=== PATIENT | male | born 1940 | race Caucasian/White ===

== ENCOUNTER 2020-02-12 11:28 | Inpatient (IN) | payer MEDICARE ==
[~2020-02-12] VITALS: Ht 162.6 cm; Wt 68.0 kg
[2020-02-12] MEDS ORDERED: iohexol 350 MG/ML 50ML vial IV ONE (11:58)
[2020-02-12] MEDS ORDERED: iohexol 350MG/ML 100ml bottle IV ONE (11:58)
[2020-02-12 12:14] LABS: BASOPHILS % (AUTO) 0.3 % (0-1); EOSINOPHILS % (AUTO) 0 % (0-6); HEMATOCRIT 47.4 % (42.0-52.0); HEMOGLOBIN 16.4 g/dl (14.0-17.9); LYMPHOCYTES # (AUTO) 1.5 X10'3 (1.1-4.8); LYMPHOCYTES % (AUTO) 14.3 % (21-51); MEAN CORPUSCULAR HEMOGLOBIN 33.9 PG (27.0-31.0); MEAN CORPUSCULAR HGB CONC 34.6 g/dL (33.0-36.5); MEAN CORPUSCULAR VOLUME 98.1 FL (78-98); MEAN PLATELET VOLUME 8.9 FL (7.4-10.4); MONOCYTES # (AUTO) 0.8 X10'3 (0-0.9); MONOCYTES % (AUTO) 7.1 % (2-12); NEUTROPHILS # (AUTO) 8.4 X10'3 (1.8-7.7); NEUTROPHILS % (AUTO) 78.3 % (42-75); PLATELET COUNT 254 X10'3 (140-440); RED BLOOD COUNT 4.83 X10'6 (4.70-6.10); RED CELL DISTRIBUTION WIDTH 13.8 % (11.5-14.5); WHITE BLOOD COUNT 10.7 X10'3 (4.5-11.0)
[2020-02-12 12:23] LABS: ALBUMIN 3.9 G/DL (3.4-5.0); ANION GAP 10 (8-16); BLOOD UREA NITROGEN 6 MG/DL (7-18); BUN/CREATININE RATIO 6.4 (5.4-32.0); CALCIUM 8.9 MG/DL (8.5-10.1); CHLORIDE 103 MMOL/L (99-107); CREATININE 0.94 MG/DL (0.60-1.10); GLUCOSE 128 MG/DL (70-104); SODIUM 136 MMOL/L (135-145); TOTAL CARBON DIOXIDE 22.8 MMOL/L (24-32); eGFR 77 ML/MIN
--- NOTE | 2020-02-12 13:16 | NUR ---
Pt has no change in condition. Pt denies pain unless he is weight bearing on bilateral lower extremities.
[2020-02-12] MEDS ORDERED: NO HOME MEDS (15:39)
[2020-02-12] MEDS ORDERED: magnesium 4gm in 100ml NS 100 ML IV PRN (16:55)
[2020-02-12] MEDS ORDERED: magnesium Cl slow-release 64mg tablet PO PRN (16:55)
[2020-02-12] MEDS ORDERED: potassium Cl 20 mEq SR tablet PO PRN ×2 (16:55)
[2020-02-12] MEDS ORDERED: magnesium 2GM in 50ml NS 50 ML IV PRN (16:55)
[2020-02-12] MEDS ORDERED: acetaminophen 325mg tablet PO PRN (16:55)
[2020-02-12] MEDS ORDERED: potassium CL 10mEq/100ml bag 100 ML IV PRN ×2 (16:55)
[2020-02-12] MEDS ORDERED: HYDROcodone/acetaminophen 5mg/325mg tablet PO PRN (16:55)
[2020-02-12] MEDS ORDERED: ondansetron/PF 4mg/2ml inj IV PRN (16:55)
[2020-02-12] MEDS: normal saline 1000ml 1,000 ML IV SCH (17:44)
[2020-02-12] MEDS: MESSAGE TO NURSING PO NR (18:04)
[2020-02-12] MEDS: heparin, porcine 5000 units/ml vial SQ SCH (20:00)
[2020-02-12] MEDS: K and/or MAG REPLACEMENT MC SCH (20:00)
--- NOTE | 2020-02-12 20:32 | NUR ---
Surgical Charge Nurse phoned and stated that Dr. Lagunas is requesting the patient only goes to Surgical flood. Phoned Dr. Brooks and received the order to cancel the Tele monitoring. Pt is awaiting a new bed assignment.
--- NOTE | 2020-02-12 20:48 | NUR ---
Dr. Lagunas is at the bedside with the patient at this time. Awaiting a new bed assignment.
--- NOTE | 2020-02-12 20:52 | NUR ---
Attempted to phone report to Surgical, Receiving RN is not available to take report but will phone to receive the report shortly.
[2020-02-12 23:00] VITALS: BP 158/76
[2020-02-13] MEDS: normal saline 1000ml 1,000 ML IV SCH ×3 (03:53→22:55)
[2020-02-13 05:53] LABS: ALBUMIN 3.2 G/DL (3.4-5.0); ANION GAP 8 (8-16); BLOOD UREA NITROGEN 8 MG/DL (7-18); BUN/CREATININE RATIO 9.6 (5.4-32.0); CALCIUM 8.3 MG/DL (8.5-10.1); CHLORIDE 105 MMOL/L (99-107); CHOLESTEROL 133 MG/DL (0-200); CREATININE 0.83 MG/DL (0.60-1.10); GLUCOSE 109 MG/DL (70-104); HDL CHOLESTEROL 44 MG/DL (35-60); LDL CHOLESTEROL 77 MG/DL (50-100); MAGNESIUM 1.8 MG/DL (1.5-2.4); SODIUM 137 MMOL/L (135-145); TOTAL CARBON DIOXIDE 23.7 MMOL/L (24-32); TRIGLYCERIDES 66 MG/DL (20-135); eGFR 89 ML/MIN
[2020-02-13 06:08] LABS: BASOPHILS % (AUTO) 0.5 % (0-1); EOSINOPHILS % (AUTO) 0.3 % (0-6); HEMATOCRIT 44.8 % (42.0-52.0); HEMOGLOBIN 15.3 g/dl (14.0-17.9); LYMPHOCYTES # (AUTO) 1.8 X10'3 (1.1-4.8); LYMPHOCYTES % (AUTO) 22.1 % (21-51); MEAN CORPUSCULAR HEMOGLOBIN 33.6 PG (27.0-31.0); MEAN CORPUSCULAR HGB CONC 34.1 g/dL (33.0-36.5); MEAN CORPUSCULAR VOLUME 98.6 FL (78-98); MEAN PLATELET VOLUME 9.6 FL (7.4-10.4); MONOCYTES # (AUTO) 0.7 X10'3 (0-0.9); MONOCYTES % (AUTO) 8.9 % (2-12); NEUTROPHILS # (AUTO) 5.6 X10'3 (1.8-7.7); NEUTROPHILS % (AUTO) 68.2 % (42-75); PLATELET COUNT 216 X10'3 (140-440); RED BLOOD COUNT 4.54 X10'6 (4.70-6.10); RED CELL DISTRIBUTION WIDTH 13.8 % (11.5-14.5); WHITE BLOOD COUNT 8.3 X10'3 (4.5-11.0)
--- NOTE | 2020-02-13 06:20 | NUR ---
Patient in room JOSE 346B. I have received report from RASHEEDA CASON and had the opportunity to ask questions and assume patient care.
[2020-02-13 07:00] VITALS: BP 161/64
[2020-02-13] MEDS: K and/or MAG REPLACEMENT MC SCH ×2 (08:00→20:00)
[2020-02-13] MEDS: heparin, porcine 5000 units/ml vial SQ SCH ×2 (08:00→20:00)
[2020-02-13] MEDS: MESSAGE TO NURSING PO NR (10:32)
[2020-02-13 11:00] VITALS: BP 134/57
[2020-02-13 15:02] VITALS: BP 142/71
--- NOTE | 2020-02-13 16:00 | NUR ---
Problems reprioritized. Patient report given, questions answered & plan of care reviewed with RASHEEDA ROSAS IN OR.
[2020-02-13] MEDS ORDERED: ringers solution, lacted 1,000 ML IV SCH (17:16)
[2020-02-13] MEDS ORDERED: meperidine/PF 25mg/ml syringe IV PRN ×3 (17:20)
[2020-02-13] MEDS ORDERED: ondansetron/PF 4mg/2ml inj IV PRN (17:20)
[2020-02-13] MEDS ORDERED: morphine 2 MG/ML inj. syringe IV PRN (17:20)
[2020-02-13] MEDS ORDERED: morphine 4 MG/ML inj SYRINge IV PRN (17:20)
[2020-02-13] MEDS ORDERED: rocuronium 10mg/ml inj IV ONE (17:29)
[2020-02-13] MEDS ORDERED: fentaNYL/PF 50MCG/1 ML 2ML syringe ONE ×2 (17:29→22:11)
[2020-02-13] MEDS ORDERED: propofol inj 20 ML IV ONE (17:29)
[2020-02-13] MEDS ORDERED: midazolam 2 mg/2 ml injection ONE (17:29)
[2020-02-13] MEDS: heparin 10,000 units/1 ML INJ ONE ×2 (18:00→18:42)
[2020-02-13] MEDS ORDERED: ceFAZolin 1000mg inj ONE ×2 (18:12)
--- NOTE | 2020-02-13 18:31 | NUR ---
I have received report from Ayleen and had the opportunity to ask questions and assume patient care. Patient is currently still in the OR.
--- NOTE | 2020-02-13 18:53 | NUR ---
Problems reprioritized. Patient report given, questions answered & plan of care reviewed with RASHEEDA CHENG.
[2020-02-13] MEDS ORDERED: iohexol 300 MG/1 ML 50ml polymer ONE ×2 (20:52→20:54)
[2020-02-13] MEDS ORDERED: labetalol 20mg/4ml (5mg/ml) syringe IV ONE (21:38)
[2020-02-13] MEDS ORDERED: sugammadex 200mg/2ml injection IV ONE (22:14)
[2020-02-13] MEDS ORDERED: potassium CL 20mEq in D5-1/2NS 1,000 ML IV SCH (22:21)
[2020-02-13] MEDS ORDERED: CADD PCA waste documentation MC PRN (22:25)
[2020-02-13] MEDS ORDERED: naloxone 0.4 mg/ml inj IV PRN (22:25)
[2020-02-13] MEDS ORDERED: HYDROmorphone/NS 1 mg/ml CADD 50 ML IV SCH (22:25)
[2020-02-13] MEDS ORDERED: nitroGLYCERIN-Tridil 50MG/D5W 250 ML IV ONE (23:04)
[2020-02-13 23:15] VITALS: BP 165/68
[2020-02-13] MEDS ORDERED: nitroGLYCERIN-Tridil 50MG/D5W 250 ML IV PRN (23:20)
[2020-02-13 23:30] VITALS: BP 156/70
[2020-02-13 23:45] VITALS: BP 131/55
[2020-02-14] VITALS (25 sets, daily range): BP systolic 89–142; BP diastolic 43–67
[2020-02-14 00:58] LABS: BASOPHILS # (AUTO) 0.1 X10'3 (0-0.2); BASOPHILS % (AUTO) 0.4 % (0-1); EOSINOPHILS % (AUTO) 0.1 % (0-6); HEMATOCRIT 37.2 % (42.0-52.0); HEMOGLOBIN 12.7 g/dl (14.0-17.9); LYMPHOCYTES # (AUTO) 1.9 X10'3 (1.1-4.8); LYMPHOCYTES % (AUTO) 10.4 % (21-51); MEAN CORPUSCULAR HEMOGLOBIN 33.9 PG (27.0-31.0); MEAN CORPUSCULAR HGB CONC 34.1 g/dL (33.0-36.5); MEAN CORPUSCULAR VOLUME 99.5 FL (78-98); MEAN PLATELET VOLUME 9.1 FL (7.4-10.4); MONOCYTES # (AUTO) 1.1 X10'3 (0-0.9); MONOCYTES % (AUTO) 6.1 % (2-12); NEUTROPHILS # (AUTO) 15.2 X10'3 (1.8-7.7); PLATELET COUNT 194 X10'3 (140-440); RED BLOOD COUNT 3.74 X10'6 (4.70-6.10); RED CELL DISTRIBUTION WIDTH 13.6 % (11.5-14.5); WHITE BLOOD COUNT 18.3 X10'3 (4.5-11.0)
[2020-02-14] MEDS: HYDROmorphone/NS 1 mg/ml CADD 50 ML IV SCH ×12 (01:00→23:00)
[2020-02-14 01:10] LABS: ALBUMIN 2.7 G/DL (3.4-5.0); ANION GAP 11 (8-16); BLOOD UREA NITROGEN 8 MG/DL (7-18); BUN/CREATININE RATIO 9.9 (5.4-32.0); CALCIUM 7.5 MG/DL (8.5-10.1); CHLORIDE 102 MMOL/L (99-107); CREATININE 0.81 MG/DL (0.60-1.10); GLUCOSE 222 MG/DL (70-104); MAGNESIUM 1.4 MG/DL (1.5-2.4); POTASSIUM 3.7 MMOL/L (3.5-5.1); SODIUM 130 MMOL/L (135-145); TOTAL CARBON DIOXIDE 16.9 MMOL/L (24-32); eGFR > 90 ML/MIN
[2020-02-14 01:14] LABS: PARTIAL THROMBOPLASTIN TIME 82 SECONDS (22-32)
[2020-02-14] MEDS ORDERED: magnesium 2GM in 50ml NS 50 ML IV ONE (01:30)
[2020-02-14] MEDS: normal saline 1000ml 1,000 ML IV SCH ×4 (01:50→16:51)
[2020-02-14] MEDS: ceFOXitin 1 GM/D5W 50mL IVPB 50 ML IV SCH ×2 (02:18→10:55)
[2020-02-14 02:19] LABS: BASOPHILS % (AUTO) 0.2 % (0-1); EOSINOPHILS % (AUTO) 0 % (0-6); HEMATOCRIT 36.1 % (42.0-52.0); HEMOGLOBIN 12.2 g/dl (14.0-17.9); LYMPHOCYTES # (AUTO) 1.6 X10'3 (1.1-4.8); LYMPHOCYTES % (AUTO) 8.2 % (21-51); MEAN CORPUSCULAR HEMOGLOBIN 33.3 PG (27.0-31.0); MEAN CORPUSCULAR HGB CONC 33.7 g/dL (33.0-36.5); MEAN CORPUSCULAR VOLUME 98.8 FL (78-98); MEAN PLATELET VOLUME 9.1 FL (7.4-10.4); MONOCYTES # (AUTO) 1.3 X10'3 (0-0.9); MONOCYTES % (AUTO) 6.5 % (2-12); NEUTROPHILS # (AUTO) 16.4 X10'3 (1.8-7.7); NEUTROPHILS % (AUTO) 85.1 % (42-75); PLATELET COUNT 185 X10'3 (140-440); RED BLOOD COUNT 3.65 X10'6 (4.70-6.10); RED CELL DISTRIBUTION WIDTH 13.5 % (11.5-14.5); WHITE BLOOD COUNT 19.3 X10'3 (4.5-11.0)
[2020-02-14] MEDS: heparin, porcine 5000 units/ml vial SQ SCH ×2 (08:00→19:10)
[2020-02-14] MEDS: K and/or MAG REPLACEMENT MC SCH ×2 (08:00→20:00)
[2020-02-14] MEDS: MESSAGE TO NURSING PO NR (10:00)
--- NOTE | 2020-02-14 11:50 | NUR ---
WOUND VAC EDUCATION PROVIDED BY WOUND CARE 1. Patient instructed to call the Wound Center or their Home Health Agency immediately if: * They notice a change in the color or amount of the fluid in the canister. * Their wound looks more red than usual or has a foul smell. * The skin around their wound looks reddened or irritated. * The dressing feels loose or appears to be loose. * They experience any increase or changes in their pain. * The alarm will not turn off. 2. Patient instructed that they should not be disconnected from suction for more than 2 hours at a time. * If they are not able to get the suction back on, they need to remove the dressing and take all of the foam out of the wound. * Then moisten sterile gauze with normal saline and place on/in the wound. * Change the dressing once a day until arrangements have been made to replace the wound vac dressing. 3. Patient instructed to turn the wound vac machine OFF and call 911 or go to the ED immediately if their canister fills rapidly with blood. 4. If any of these occur while in the hospital tell a nurse immediately. Addendum: 02/14/20 at 1150 by Jose Alberto Estes RN Amended: Links added.
[2020-02-14] MEDS ORDERED: normal saline 1000ml 1,000 ML IV ONE (11:55)
--- NOTE | 2020-02-14 14:38 | NUR ---
Initial: Pt admit with PVD, now s/p revascularization with wound VAC in place, wound care following. Patient's diet has just been advanced from NPO to clear liquids, pending first meal since diet advancement. [facility] 02/10. Limited nutrition interventions at this time given current diet order. Will continue to follow closely and monitor need for ONS. Recommendations: 1) Advance to regular diet as medically indicated 2) Monitor need for ONS 3) Routine bowel care 4) Scaled weights per rx Addendum: 02/14/20 at [address] Amended: Links added.
[2020-02-14 15:45] LABS: ALANINE AMINOTRANSFERASE 13 U/L (12-78); ALBUMIN 2.6 G/DL (3.4-5.0); ALBUMIN/GLOBULIN RATIO 1.1 (1.1-1.5); ALKALINE PHOSPHATASE 47 IU/L (46-116); ANION GAP 10 (8-16); ASPARTATE AMINO TRANSFERASE 27 U/L (10-37); BILIRUBIN,TOTAL 0.6 MG/DL (0.1-1.0); BLOOD UREA NITROGEN 13 MG/DL (7-18); CALCIUM 6.9 MG/DL (8.5-10.1); CHLORIDE 105 MMOL/L (99-107); CREATININE 1.18 MG/DL (0.60-1.10); GLUCOSE 118 MG/DL (70-104); PHOSPHORUS 4.3 MG/DL (2.3-4.5); POTASSIUM 4.2 MMOL/L (3.5-5.1); SODIUM 133 MMOL/L (135-145); TOTAL CARBON DIOXIDE 18.4 MMOL/L (24-32); eGFR 59 ML/MIN
[2020-02-14] MEDS: nicotine 14mg patch - 24hr TD SCH (16:50)
[2020-02-14] MEDS ORDERED: CefTRIAXone inj 2,000 MG in normal saline 100ml IV soln 100 ML IV ONE (17:30)
[2020-02-14] MEDS ORDERED: normal saline 500ml IV soln 500 ML IV ONE (19:50)
--- NOTE | 2020-02-14 19:53 | NUR ---
pt being transferred to surgical floor. Dr. Bartlett ordered Lactic Acid to be draw. Lactate level was elevated-3.6. In addition, UOP for the past 8 hours has been less than 10ml/hr. Dr. Brooks, hospitalist air support control officer for Dr. Bartlett notified. Dr. Brooks came to bedside to evaluate patient. A 500ml bolus ordered, as well as, a repeat LA at 2200.
--- NOTE | 2020-02-14 23:00 | NUR ---
CADD pump cleared accidentally while obtaining 2300 numbers; continued to document EMAR adjusted to reflect previous sequence of attempts vs demand doses given; continued to repeat this until 0700am values obtained. Discussed with special education aide, as numbers documented on EMAR were consistent with actual values, compared to number number shown on CADD pump. Continuous dose discontinued by ICU Charge Nessa VANESSA, due to patients Blood Pressure trending somewhat low, charted as indicated. Kamilla VANESSA
[2020-02-15] MEDS: normal saline 1000ml 1,000 ML IV SCH ×5 (00:55→17:39)
[2020-02-15] MEDS ORDERED: normal saline 500ml IV soln 1,000 ML IV ONE (01:25)
[2020-02-15] MEDS: HYDROmorphone/NS 1 mg/ml CADD 50 ML IV SCH ×12 (01:52→23:00)
[2020-02-15 02:00] VITALS: BP 124/54
[2020-02-15 06:00] VITALS: BP 173/74
[2020-02-15 06:15] LABS: BASOPHILS % (AUTO) 0.2 % (0-1); EOSINOPHILS % (AUTO) 0.1 % (0-6); HEMATOCRIT 33.3 % (42.0-52.0); HEMOGLOBIN 11.3 g/dl (14.0-17.9); LYMPHOCYTES # (AUTO) 0.7 X10'3 (1.1-4.8); LYMPHOCYTES % (AUTO) 5.8 % (21-51); MEAN CORPUSCULAR HEMOGLOBIN 34.2 PG (27.0-31.0); MEAN CORPUSCULAR VOLUME 100.6 FL (78-98); MEAN PLATELET VOLUME 9.2 FL (7.4-10.4); MONOCYTES # (AUTO) 1.2 X10'3 (0-0.9); MONOCYTES % (AUTO) 9.5 % (2-12); NEUTROPHILS # (AUTO) 10.6 X10'3 (1.8-7.7); NEUTROPHILS % (AUTO) 84.4 % (42-75); PLATELET COUNT 130 X10'3 (140-440); RED BLOOD COUNT 3.31 X10'6 (4.70-6.10); RED CELL DISTRIBUTION WIDTH 13.5 % (11.5-14.5); WHITE BLOOD COUNT 12.6 X10'3 (4.5-11.0)
[2020-02-15 06:25] LABS: ALBUMIN 2.4 G/DL (3.4-5.0); ANION GAP 9 (8-16); BLOOD UREA NITROGEN 15 MG/DL (7-18); BUN/CREATININE RATIO 13.9 (5.4-32.0); CHLORIDE 108 MMOL/L (99-107); CREATININE 1.08 MG/DL (0.60-1.10); GLUCOSE 124 MG/DL (70-104); SODIUM 136 MMOL/L (135-145); TOTAL CARBON DIOXIDE 19.3 MMOL/L (24-32); eGFR 66 ML/MIN
--- NOTE | 2020-02-15 06:47 | NUR ---
Patient in room MED 313. I have received report from RASHEEDA Hill and had the opportunity to ask questions and assume patient care.
--- NOTE | 2020-02-15 06:47 | NUR ---
SPOKE WITH PHARMACIST ABOUT CADD PUMP DOCUMENTATION ISSUE: PUMP WAS ACCIDENTALLY CLEARED DURING NOC SHIFT 02/14/2020 @2300 PHARMACIST ADVISED TO HAVE NOC NURSE DOCUMENT LAST KNOWN VALUES ON CADD PUMP BEFORE IT WAS CLEARED. THE FOLLOWING NURSE WILL DOCUMENT WHAT IS SHOWN ON CADD PUMP. PHARMACIST TO UPDATE CUCA MÉNDEZ, EDGE FINISHER, ON MONDAY TO REMEDY DOCUMENTATION.
--- NOTE | 2020-02-15 06:57 | NUR ---
Problems reprioritized. Patient report given, questions answered & plan of care reviewed with Niurka VANESSA.
[2020-02-15] MEDS: nicotine 14mg patch - 24hr TD SCH (07:56)
[2020-02-15] MEDS: heparin, porcine 5000 units/ml vial SQ SCH ×2 (07:56→20:45)
[2020-02-15] MEDS: K and/or MAG REPLACEMENT MC SCH ×2 (08:00→20:00)
[2020-02-15 11:00] VITALS: BP 119/91
[2020-02-15] MEDS: ondansetron/PF 4mg/2ml inj IV PRN (12:27)
[2020-02-15 15:00] VITALS: BP 148/71
--- NOTE | 2020-02-15 17:20 | NUR ---
patient states "i'm getting hungry for real food" Dr. Dumont division toll wire chief for Tim Ortega called, no answer, voice msg full. attempting to page hospitalist now
--- NOTE | 2020-02-15 17:26 | NUR ---
Dr. Bartlett paged: PAGER ID: [phone] MESSAGE: 313: Schultz - getting hungry, still clears diet, passing a little gas now. Brusett off, Calvin on-call [phone], did not picking tech, msg full. Can you reach out to Calvin? ty
[2020-02-15 18:00] VITALS: BP 130/63
--- NOTE | 2020-02-15 18:10 | NUR ---
Problems reprioritized. Patient report given, questions answered & plan of care reviewed with RASHEEDA Hill.
[2020-02-15 22:00] VITALS: BP 159/72
--- NOTE | 2020-02-15 22:14 | NUR ---
Contacted Provider Todd regarding blood pressure consistently in 150's/160s, up from 130's during last 24 hrs; discussed medications, MD advised to monitor for sustained BP/HR, no new medications at this time. Kamilla VANESSA
[2020-02-16] MEDS: HYDROmorphone/NS 1 mg/ml CADD 50 ML IV SCH ×12 (01:00→23:00)
[2020-02-16 02:00] VITALS: BP 164/76
[2020-02-16] MEDS: normal saline 1000ml 1,000 ML IV SCH (04:50)
[2020-02-16 06:00] VITALS: BP 159/78
[2020-02-16 06:29] LABS: BASOPHILS % (AUTO) 0.1 % (0-1); EOSINOPHILS % (AUTO) 0 % (0-6); HEMATOCRIT 29.4 % (42.0-52.0); LYMPHOCYTES # (AUTO) 0.9 X10'3 (1.1-4.8); MEAN CORPUSCULAR HEMOGLOBIN 33.7 PG (27.0-31.0); MEAN CORPUSCULAR HGB CONC 34.1 g/dL (33.0-36.5); MEAN CORPUSCULAR VOLUME 98.9 FL (78-98); MEAN PLATELET VOLUME 9.1 FL (7.4-10.4); MONOCYTES # (AUTO) 1.2 X10'3 (0-0.9); MONOCYTES % (AUTO) 10.5 % (2-12); NEUTROPHILS % (AUTO) 81.4 % (42-75); PLATELET COUNT 132 X10'3 (140-440); RED BLOOD COUNT 2.97 X10'6 (4.70-6.10); RED CELL DISTRIBUTION WIDTH 13.5 % (11.5-14.5); WHITE BLOOD COUNT 11.1 X10'3 (4.5-11.0)
--- NOTE | 2020-02-16 06:29 | NUR ---
Problems reprioritized. Patient report given, questions answered & plan of care reviewed with CURT VANESSA.
[2020-02-16 06:50] LABS: ANION GAP 7 (8-16); BLOOD UREA NITROGEN 13 MG/DL (7-18); BUN/CREATININE RATIO 13.5 (5.4-32.0); CALCIUM 7.3 MG/DL (8.5-10.1); CHLORIDE 106 MMOL/L (99-107); CREATININE 0.96 MG/DL (0.60-1.10); GLUCOSE 98 MG/DL (70-104); MAGNESIUM 1.9 MG/DL (1.5-2.4); POTASSIUM 3.7 MMOL/L (3.5-5.1); SODIUM 134 MMOL/L (135-145); TOTAL CARBON DIOXIDE 21.4 MMOL/L (24-32); eGFR 75 ML/MIN
--- NOTE | 2020-02-16 06:50 | NUR ---
Patient in room MED 313. I have received report from RASHEEDA Hill and had the opportunity to ask questions and assume patient care.
[2020-02-16] MEDS: K and/or MAG REPLACEMENT MC SCH ×2 (08:00→20:00)
[2020-02-16] MEDS: nicotine 14mg patch - 24hr TD SCH (08:00)
[2020-02-16] MEDS ORDERED: CefTRIAXone 2gm/D5W 50ml 50 ML IV SCH (08:00)
[2020-02-16] MEDS: CefTRIAXone inj 2,000 MG in normal saline 100ml IV soln 100 ML IV SCH (09:46)
[2020-02-16] MEDS: heparin, porcine 5000 units/ml vial SQ SCH ×2 (09:57→22:34)
[2020-02-16 10:00] VITALS: BP 154/78
[2020-02-16 14:00] VITALS: BP 145/73
[2020-02-16] MEDS ORDERED: potassium CL 10mEq/100ml bag 100 ML IV PRN (15:20)
[2020-02-16] MEDS ORDERED: potassium Cl 20 mEq SR tablet PO PRN (15:20)
[2020-02-16] MEDS ORDERED: magnesium Cl slow-release 64mg tablet PO PRN (15:20)
[2020-02-16] MEDS ORDERED: magnesium 4gm in 100ml NS 100 ML IV PRN (15:20)
[2020-02-16] MEDS: magnesium hydroxide 30ml (MOM) UD suspension PO PRN (16:10)
[2020-02-16 18:00] VITALS: BP 152/68
--- NOTE | 2020-02-16 18:30 | NUR ---
Patient in room MED 313. I have received report from CURT VANESSA and had the opportunity to ask questions and assume patient care.
[2020-02-16 22:00] VITALS: BP 161/70
[2020-02-17] MEDS: mag hydrox/Alum hydrox/simeth 30ml oral suspension PO PRN (00:43)
[2020-02-17] MEDS: HYDROmorphone/NS 1 mg/ml CADD 50 ML IV SCH ×8 (01:00→15:00)
[2020-02-17] MEDS: normal saline 1000ml 1,000 ML IV SCH (01:18)
[2020-02-17 01:42] LABS: BASOPHILS % (AUTO) 0.1 % (0-1); EOSINOPHILS % (AUTO) 0 % (0-6); HEMATOCRIT 30.1 % (42.0-52.0); HEMOGLOBIN 10.5 g/dl (14.0-17.9); LYMPHOCYTES # (AUTO) 0.9 X10'3 (1.1-4.8); LYMPHOCYTES % (AUTO) 8.8 % (21-51); MEAN CORPUSCULAR HEMOGLOBIN 34.3 PG (27.0-31.0); MEAN CORPUSCULAR HGB CONC 35.1 g/dL (33.0-36.5); MEAN CORPUSCULAR VOLUME 97.7 FL (78-98); MONOCYTES # (AUTO) 0.9 X10'3 (0-0.9); MONOCYTES % (AUTO) 9.1 % (2-12); NEUTROPHILS # (AUTO) 8.2 X10'3 (1.8-7.7); PLATELET COUNT 160 X10'3 (140-440); RED BLOOD COUNT 3.08 X10'6 (4.70-6.10); RED CELL DISTRIBUTION WIDTH 13.5 % (11.5-14.5)
[2020-02-17 01:50] LABS: ALBUMIN 2.2 G/DL (3.4-5.0); ANION GAP 10 (8-16); BLOOD UREA NITROGEN 14 MG/DL (7-18); CALCIUM 7.5 MG/DL (8.5-10.1); CHLORIDE 103 MMOL/L (99-107); GLUCOSE 113 MG/DL (70-104); MAGNESIUM 2.2 MG/DL (1.5-2.4); POTASSIUM 3.2 MMOL/L (3.5-5.1); SODIUM 133 MMOL/L (135-145); TOTAL CARBON DIOXIDE 20.3 MMOL/L (24-32); eGFR 72 ML/MIN
[2020-02-17 02:00] VITALS: BP 160/82
[2020-02-17] MEDS: potassium Cl 20 mEq SR tablet PO PRN ×2 (03:50→17:59)
[2020-02-17 06:00] VITALS: BP 167/83
--- NOTE | 2020-02-17 06:39 | NUR ---
Problems reprioritized. Patient report given, questions answered & plan of care reviewed with CURT VANESSA.
--- NOTE | 2020-02-17 07:03 | NUR ---
Patient in room MED 313. I have received report from alley mccullough and had the opportunity to ask questions and assume patient care.
[2020-02-17] MEDS ORDERED: bisacodyl 10mg suppository rectal RC STA (07:40)
[2020-02-17] MEDS: K and/or MAG REPLACEMENT MC SCH ×2 (08:00→20:00)
[2020-02-17] MEDS: CefTRIAXone inj 2,000 MG in normal saline 100ml IV soln 100 ML IV SCH (08:03)
[2020-02-17] MEDS: heparin, porcine 5000 units/ml vial SQ SCH ×2 (08:04→20:35)
[2020-02-17] MEDS: nicotine 14mg patch - 24hr TD SCH (08:05)
[2020-02-17] MEDS: magnesium hydroxide 30ml (MOM) UD suspension PO PRN (09:41)
[2020-02-17 10:00] VITALS: BP 162/88
[2020-02-17] MEDS ORDERED: HYDROcodone/acetaminophen 5mg/325mg tablet PO PRN (14:05)
[2020-02-17] MEDS ORDERED: CADD PCA waste documentation MC PRN (14:25)
[2020-02-17 18:00] VITALS: BP 168/80
--- NOTE | 2020-02-17 18:15 | NUR ---
Patient in room MED 313. I have received report from CURT VANESSA and had the opportunity to ask questions and assume patient care.
--- NOTE | 2020-02-17 20:16 | NUR ---
pt complains of sinus congestion, relayed message to [employer], no new orders received.
[2020-02-17] MEDS: lactobacillus rhamnosus 10,000 MMU CELLS/CAPSULE PO SCH (20:35)
[2020-02-17 22:00] VITALS: BP 157/77
[2020-02-18] VITALS (15 sets, daily range): BP systolic 119–169; BP diastolic 57–101
[2020-02-18 06:05] LABS: BASOPHILS % (AUTO) 0.1 % (0-1); EOSINOPHILS % (AUTO) 0.1 % (0-6); HEMATOCRIT 31.2 % (42.0-52.0); LYMPHOCYTES # (AUTO) 1.1 X10'3 (1.1-4.8); LYMPHOCYTES % (AUTO) 14.9 % (21-51); MEAN CORPUSCULAR HEMOGLOBIN 34.3 PG (27.0-31.0); MEAN CORPUSCULAR HGB CONC 35.4 g/dL (33.0-36.5); MEAN CORPUSCULAR VOLUME 96.9 FL (78-98); MEAN PLATELET VOLUME 8.9 FL (7.4-10.4); MONOCYTES # (AUTO) 1.2 X10'3 (0-0.9); MONOCYTES % (AUTO) 16.5 % (2-12); NEUTROPHILS # (AUTO) 5.1 X10'3 (1.8-7.7); NEUTROPHILS % (AUTO) 68.4 % (42-75); PLATELET COUNT 180 X10'3 (140-440); RED BLOOD COUNT 3.22 X10'6 (4.70-6.10); RED CELL DISTRIBUTION WIDTH 13.5 % (11.5-14.5); WHITE BLOOD COUNT 7.5 X10'3 (4.5-11.0)
[2020-02-18 06:06] LABS: ALBUMIN 2.3 G/DL (3.4-5.0); ANION GAP 11 (8-16); BLOOD UREA NITROGEN 22 MG/DL (7-18); BUN/CREATININE RATIO 21.4 (5.4-32.0); CALCIUM 7.8 MG/DL (8.5-10.1); CHLORIDE 105 MMOL/L (99-107); CREATININE 1.03 MG/DL (0.60-1.10); GLUCOSE 103 MG/DL (70-104); MAGNESIUM 2.4 MG/DL (1.5-2.4); POTASSIUM 3.5 MMOL/L (3.5-5.1); SODIUM 138 MMOL/L (135-145); TOTAL CARBON DIOXIDE 22.1 MMOL/L (24-32); eGFR 69 ML/MIN
--- NOTE | 2020-02-18 06:10 | NUR ---
Patient in room MED 313. I have received report from RASHEEDA Luna and had the opportunity to ask questions and assume patient care.
--- NOTE | 2020-02-18 06:19 | NUR ---
Problems reprioritized. Patient report given, questions answered & plan of care reviewed with Vincent VANESSA.
[2020-02-18] MEDS ORDERED: ringers solution, lacted 1,000 ML IV ONE (07:50)
[2020-02-18 07:58] LABS: TOTAL CELLS COUNTED 100
[2020-02-18] MEDS: heparin, porcine 5000 units/ml vial SQ SCH (08:00)
[2020-02-18] MEDS: K and/or MAG REPLACEMENT MC SCH ×2 (08:00→20:00)
[2020-02-18 08:08] LABS: ANISOCYTOSIS FEW; PLATELET ESTIMATE NORMAL
[2020-02-18] MEDS: aspirin 81mg tablet.DR PO SCH (08:29)
[2020-02-18] MEDS: CefTRIAXone inj 2,000 MG in normal saline 100ml IV soln 100 ML IV SCH (08:29)
[2020-02-18] MEDS: lactobacillus rhamnosus 10,000 MMU CELLS/CAPSULE PO SCH ×2 (08:29→23:15)
[2020-02-18] MEDS: nicotine 14mg patch - 24hr TD SCH (08:31)
[2020-02-18] MEDS ORDERED: famotidine 10mg tablet PO ONE (09:00)
[2020-02-18] MEDS ORDERED: famotidine 20mg tablet PO ONE (09:00)
[2020-02-18] MEDS: ondansetron/PF 4mg/2ml inj IV PRN (10:07)
--- NOTE | 2020-02-18 14:20 | NUR ---
PATIENT TO OR. VSS, NO S/SX OF DISTRESS.
[2020-02-18] MEDS ORDERED: LIDOcaine 1% (10mg/ml) 2ml vial ONE (14:48)
[2020-02-18] MEDS ORDERED: heparin 10,000 units/1 ML INJ ONE (14:48)
[2020-02-18] MEDS ORDERED: fentaNYL/PF 50MCG/1 ML 2ML syringe ONE ×2 (14:57→17:47)
[2020-02-18] MEDS ORDERED: rocuronium 10mg/ml inj IV ONE ×2 (14:58→16:37)
[2020-02-18] MEDS ORDERED: ringers solution, lacted 1,000 ML IV SCH (15:04)
[2020-02-18] MEDS ORDERED: ondansetron/PF 4mg/2ml inj IV PRN (15:05)
[2020-02-18] MEDS ORDERED: fentaNYL/PF 50MCG/1 ML 2ML syringe IV PRN (15:05)
[2020-02-18] MEDS ORDERED: hydrALAZINE 20mg/ml inj. IV PRN (15:05)
[2020-02-18] MEDS ORDERED: morphine 4 MG/ML inj SYRINge IV PRN (15:05)
[2020-02-18] MEDS ORDERED: labetalol 20mg/4ml (5mg/ml) syringe IV PRN (15:05)
[2020-02-18] MEDS ORDERED: morphine 2 MG/ML inj. syringe IV PRN (15:05)
[2020-02-18] MEDS ORDERED: dexamethasone sod phosphate 10mg/ml inj ONE (15:20)
[2020-02-18] MEDS ORDERED: sevoflurane 250ml liquid IH ONE (15:20)
[2020-02-18] MEDS ORDERED: neostigmine methylsulfate 1 MG/ML 10ml vial ONE (15:20)
--- NOTE | 2020-02-18 15:47 | NUR ---
Reassessment: patient not eating well, 0-25% PO intake. Attempted bedside visit today however patient was not in room, was in surgery for right FEMPOP. His bedside RN had reported that today he had nausea today and declined to eat breakfast; stated that pt will be transferred to critical care when done with surgery. Will attempt to revisit when pt out of surgery. Recommendations: 1) Advance to heart healthy diet as medically indicated 2) Monitor need for ONS, patient with suboptimal PO Intake 3) Routine bowel care 4) Scaled weights per rx Addendum: 02/18/20 at [address] Amended: Links added.
[2020-02-18] MEDS ORDERED: albumin (Human) 5% 250ml 250 ML IV ONE (15:56)
[2020-02-18] MEDS ORDERED: glycopyrrolate 0.2mg/ml inj ONE (16:54)
[2020-02-18] MEDS ORDERED: ondansetron/PF 4mg/2ml inj ONE (16:57)
[2020-02-18] MEDS ORDERED: labetalol 20mg/4ml (5mg/ml) syringe IV ONE (18:09)
--- NOTE | 2020-02-18 18:29 | NUR ---
All patient belongings collected and taken to ICU.
--- NOTE | 2020-02-18 18:30 | NUR ---
Received from OR via BED , accompanied by Anesthesiologist DR CLAROS and report given by Anesthesiolgist. PATIENT WAKING UP, DENIES PAIN, V/S WNL, NEUROVASCULAR CHECKS INTACT. 18G RUE, 22G AND 20G LUE. ART LINE LUE NOT WORKING PER DR. CLAROS WILL DC PER VERBAL ORDER, F/C DRAINAING CLEAR YELLOW URINE, SCD ON, DRESSING TO LEFT NECK CDI WITH [place] WITH MINIMAL OUTPUT. DOPPLER PULSES HEARD BOTH DP AND PT TO RT LEG
--- NOTE | 2020-02-18 19:30 | NUR ---
PATIENT A&OX4, DENIES PAIN, V/S WNL, NEUROVASCULAR CHECKS INTACT. ART LINE DC'D WITH 5 MIN PRESSURE HELD AND PRESURE BANDAGE APPLIED, F/C DRAINING CLEAR YELLOW URINE, SCD ON, ALL DRESSINGS CDI WITH [place] WITH GOOD SUCTION. TAKEN TO 2045 WITH ALL BELONGINGS AND HOOKED UP TO MONITORS IN ROOM AND REPORT GIVEN TO DIRECTOR OF CONSULTING SERVICES WHO HAS TAKEN OVER PATIENT CARE. PULSES CHECKED WITH BECKA VANESSA POS VIA DOPPLER Addendum: 02/18/20 at 1945 by Kaia Mcclendon RN NO BELONGINGS BROUGHT TO RR, THEY WILL BE MOVED FROM ACCE TO ICU BY STAFF
[2020-02-18] MEDS: fentaNYL/PF 50MCG/1 ML 2ML syringe IV PRN (20:11)
[2020-02-19] VITALS (19 sets, daily range): BP systolic 93–154; BP diastolic 39–69
[2020-02-19] MEDS: fentaNYL/PF 50MCG/1 ML 2ML syringe IV PRN (01:14)
[2020-02-19 05:25] LABS: BASOPHILS % (AUTO) 0 % (0-1); EOSINOPHILS % (AUTO) 0 % (0-6); HEMATOCRIT 24.3 % (42.0-52.0); HEMOGLOBIN 8.4 g/dl (14.0-17.9); LYMPHOCYTES # (AUTO) 0.7 X10'3 (1.1-4.8); LYMPHOCYTES % (AUTO) 8.1 % (21-51); MEAN CORPUSCULAR HGB CONC 34.7 g/dL (33.0-36.5); MEAN PLATELET VOLUME 9.5 FL (7.4-10.4); MONOCYTES # (AUTO) 0.8 X10'3 (0-0.9); MONOCYTES % (AUTO) 9.7 % (2-12); NEUTROPHILS # (AUTO) 6.7 X10'3 (1.8-7.7); NEUTROPHILS % (AUTO) 82.2 % (42-75); PLATELET COUNT 154 X10'3 (140-440); RED BLOOD COUNT 2.48 X10'6 (4.70-6.10); WHITE BLOOD COUNT 8.1 X10'3 (4.5-11.0)
[2020-02-19 05:47] LABS: ALANINE AMINOTRANSFERASE 20 U/L (12-78); ALBUMIN 2.2 G/DL (3.4-5.0); ALKALINE PHOSPHATASE 34 IU/L (46-116); ANION GAP 11 (8-16); ASPARTATE AMINO TRANSFERASE 19 U/L (10-37); BILIRUBIN,TOTAL 0.8 MG/DL (0.1-1.0); BLOOD UREA NITROGEN 23 MG/DL (7-18); BUN/CREATININE RATIO 22.1 (5.4-32.0); CALCIUM 6.6 MG/DL (8.5-10.1); CHLORIDE 107 MMOL/L (99-107); CREATININE 1.04 MG/DL (0.60-1.10); GLUCOSE 111 MG/DL (70-104); MAGNESIUM 2.1 MG/DL (1.5-2.4); PHOSPHORUS 3.4 MG/DL (2.3-4.5); POTASSIUM 3.8 MMOL/L (3.5-5.1); SODIUM 141 MMOL/L (135-145); TOTAL CARBON DIOXIDE 22.8 MMOL/L (24-32); TOTAL PROTEIN 4.5 G/DL (6.4-8.2); eGFR 69 ML/MIN
--- NOTE | 2020-02-19 06:31 | NUR ---
report given to Zuri VANESSA, transfer of care @ 4558.
--- NOTE | 2020-02-19 06:49 | NUR ---
Patient in room ICU 2045. I have received report from RASHEEDA Sunshine and had the opportunity to ask questions and assume patient care.
[2020-02-19] MEDS: K and/or MAG REPLACEMENT MC SCH ×2 (08:00→20:00)
[2020-02-19] MEDS: nicotine 14mg patch - 24hr TD SCH (08:18)
[2020-02-19] MEDS: CefTRIAXone inj 2,000 MG in normal saline 100ml IV soln 100 ML IV SCH (08:18)
[2020-02-19] MEDS: lactobacillus rhamnosus 10,000 MMU CELLS/CAPSULE PO SCH ×2 (08:18→20:42)
[2020-02-19] MEDS: aspirin 81mg tablet.DR PO SCH (08:18)
[2020-02-19] MEDS: HYDROcodone/acetaminophen 10/325mg tab PO PRN (11:18)
--- NOTE | 2020-02-19 14:04 | NUR ---
reassessment: Pt PO remains poor 0-25% avg heart healthy meals brief increase 25-50% breakfast today still not meeting needs. LBM 02/17. Noted nausea in EMR. Pt seen by CHRISTY reports decreased appetite this admit, no GI issues at this time, and declined additional ONS options as well as alternative food options this admit. RD verbally educated pt on importance of PO meals and increased protein needs s/p surgery. Will continue to monitor. Recommendations: 1) continue heart healthy diet 2) Monitor for ONS acceptance, patient suboptimal PO Intake; declines ONS/food preferences/alternative menu items 3) Routine bowel care 4) Weekly scaled wts Addendum: 02/19/20 at [address] Amended: Links added.
[2020-02-19] MEDS: normal saline 1000ml 1,000 ML IV SCH ×2 (16:14→20:42)
--- NOTE | 2020-02-19 18:00 | NUR ---
Pt arrived at 1755 from ICU via hospital bed, to Room 349A. Pt oriented to room. IV NS at 75cc/hr, to R wrist PIV, patent. F/C patent. Wound Vac set at 75mmHg continuous suction Y'd to L and R groin sites, good seals, no drainage noted. Dressing to L calf and R upper thigh CDI.
--- NOTE | 2020-02-19 18:01 | NUR ---
Report called to receiving nurseMakayla. Transferred via bed to room 349A. Belongings all brought up with pt. including shoes, clothing, dentures, watch, Bag and personal toiletries. Special Issues communicated to receiving nurse.
--- NOTE | 2020-02-19 18:37 | NUR ---
Patient in room JOSE 349. I have received report from RASHEEDA Benavides and had the opportunity to ask questions and assume patient care.
--- NOTE | 2020-02-19 18:49 | NUR ---
Patient in room JOSE 349. I have received report from Zuri VANESSA ICU and had the opportunity to ask questions. Addendum: 02/19/20 at 1855 by Peyton Zuluaga RN Report received from Zuri VANESSA ICU at 1730.
[2020-02-19] MEDS: ondansetron/PF 4mg/2ml inj IV PRN (21:52)
[2020-02-20] VITALS: BP 131/54
[2020-02-20] MEDS ORDERED: proCHLORperazine 10 MG/2 ml inj IV ONE (01:10)
[2020-02-20] MEDS: mag hydrox/Alum hydrox/simeth 30ml oral suspension PO PRN (01:12)
[2020-02-20] MEDS: ondansetron/PF 4mg/2ml inj IV PRN ×3 (03:30→16:16)
--- NOTE | 2020-02-20 06:00 | NUR ---
Patient in room JOSE 349. I have received report from Lu Nicholas RN and had the opportunity to ask questions and assume patient care.
--- NOTE | 2020-02-20 06:23 | NUR ---
Problems reprioritized. Patient report given, questions answered & plan of care reviewed with RASHEEDA Barrett.
[2020-02-20 06:25] VITALS: BP 138/79
[2020-02-20] MEDS: proCHLORperazine 10 MG/2 ml inj IV PRN ×2 (06:33→12:53)
[2020-02-20] MEDS: nicotine 14mg patch - 24hr TD SCH (07:29)
[2020-02-20] MEDS: normal saline 1000ml 1,000 ML IV SCH ×3 (07:29→22:20)
[2020-02-20] MEDS: lactobacillus rhamnosus 10,000 MMU CELLS/CAPSULE PO SCH ×2 (07:29→19:59)
[2020-02-20] MEDS: aspirin 81mg tablet.DR PO SCH (07:29)
[2020-02-20] MEDS: K and/or MAG REPLACEMENT MC SCH ×2 (08:00→20:00)
[2020-02-20 08:44] LABS: BASOPHILS % (AUTO) 0.1 % (0-1); EOSINOPHILS % (AUTO) 0 % (0-6); HEMATOCRIT 24.4 % (42.0-52.0); HEMOGLOBIN 8.3 g/dl (14.0-17.9); LYMPHOCYTES # (AUTO) 0.9 X10'3 (1.1-4.8); LYMPHOCYTES % (AUTO) 7.6 % (21-51); MEAN CORPUSCULAR HEMOGLOBIN 33.2 PG (27.0-31.0); MEAN CORPUSCULAR HGB CONC 34.1 g/dL (33.0-36.5); MEAN CORPUSCULAR VOLUME 97.3 FL (78-98); MEAN PLATELET VOLUME 9.4 FL (7.4-10.4); MONOCYTES # (AUTO) 1.3 X10'3 (0-0.9); NEUTROPHILS # (AUTO) 9.9 X10'3 (1.8-7.7); NEUTROPHILS % (AUTO) 81.3 % (42-75); PLATELET COUNT 185 X10'3 (140-440); RED CELL DISTRIBUTION WIDTH 13.7 % (11.5-14.5); WHITE BLOOD COUNT 12.2 X10'3 (4.5-11.0)
[2020-02-20 11:00] VITALS: BP 115/60
--- NOTE | 2020-02-20 15:02 | NUR ---
paged regarding KUB resulted.
--- NOTE | 2020-02-20 17:21 | NUR ---
Informed MD Lomas of the bleeding in calf bandage, instructed to reinforce as needed. Regarding the left leg appearing slightly discolored but doppler pulses still being clearly audible states nothing is to be done. Instructed ireland to be removed at midnight. Stated that he will stop by when he can.
--- NOTE | 2020-02-20 17:25 | NUR ---
Dressing reinforced per Dr. Ortega.
--- NOTE | 2020-02-20 18:38 | NUR ---
Problems reprioritized. Patient report given, questions answered & plan of care reviewed with Vannessa RN.
[2020-02-20 19:30] VITALS: BP 157/65
[2020-02-20] MEDS: enoxaparin 40mg/0.4ml syringe SUBCUT SCH (22:26)
[2020-02-20] MEDS: methylnaltrexone br 12mg/0.6ml inj***SubQ only SQ SCH (22:27)
[2020-02-21] VITALS: BP 127/60
[2020-02-21 07:00] VITALS: BP 151/61
--- NOTE | 2020-02-21 07:07 | NUR ---
Patient in room JOSE 345. I have received report from Pat RN and had the opportunity to ask questions and assume patient care.
[2020-02-21] MEDS: ondansetron/PF 4mg/2ml inj IV PRN (07:08)
[2020-02-21] MEDS: normal saline 1000ml 1,000 ML IV SCH ×2 (07:12→15:45)
[2020-02-21] MEDS ORDERED: magnesium hydroxide 30ml (MOM) UD suspension PO SCH (08:00)
[2020-02-21] MEDS: K and/or MAG REPLACEMENT MC SCH ×2 (08:00→19:25)
[2020-02-21] MEDS: lactobacillus rhamnosus 10,000 MMU CELLS/CAPSULE PO SCH ×2 (09:25→19:33)
[2020-02-21] MEDS: aspirin 81mg tablet.DR PO SCH (09:25)
[2020-02-21] MEDS: nicotine 14mg patch - 24hr TD SCH (09:25)
[2020-02-21] MEDS: mag hydrox/Alum hydrox/simeth 30ml oral suspension PO PRN (09:26)
[2020-02-21 11:00] VITALS: BP 158/64
[2020-02-21] MEDS: proCHLORperazine 10 MG/2 ml inj IV PRN ×2 (12:53→19:57)
--- NOTE | 2020-02-21 13:26 | NUR ---
Pt has an order for NG tube to be placed. pt REFUSED Ng tube and prefers meds Zofran and/or Compazine for nausea. Dr Evangelista aware of refusal. Dr Evangelista went to see pt and recommended to proceed with NG but still pt refused.
--- NOTE | 2020-02-21 14:10 | NUR ---
Dr Smith came in to see pt and approved dressing changes, also instructed to remove Left provena groin vac leaving the RIGHT provena on until next week. Pt still nauseated and compazine is working for him. Dr aware of N/V. Charge is aware of orders.
[2020-02-21] MEDS: HYDROcodone/acetaminophen 10/325mg tab PO PRN (15:42)
[2020-02-21 18:00] VITALS: BP 152/70
--- NOTE | 2020-02-21 18:30 | NUR ---
Problems reprioritized. Patient report given, questions answered & plan of care reviewed with Kimmie VANESSA.
--- NOTE | 2020-02-21 18:40 | NUR ---
Patient in room JOSE 345. I have received report from Josephine VANESSA and had the opportunity to ask questions and assume patient care.
[2020-02-21] MEDS: pantoprazole 40 MG vial IV SCH (19:32)
[2020-02-21] MEDS: enoxaparin 40mg/0.4ml syringe SUBCUT SCH (19:36)
[2020-02-22] VITALS: BP 158/69
--- NOTE | 2020-02-22 06:32 | NUR ---
Patient in room JOSE 345. I have received report from RASHEEDA Burks and had the opportunity to ask questions and assume patient care.
--- NOTE | 2020-02-22 06:35 | NUR ---
Problems reprioritized. Patient report given, questions answered & plan of care reviewed with Omar RN.
[2020-02-22 07:39] VITALS: BP 167/74
[2020-02-22] MEDS: K and/or MAG REPLACEMENT MC SCH ×2 (08:00→20:00)
[2020-02-22 08:15] LABS: BASOPHILS % (AUTO) 0.2 % (0-1); EOSINOPHILS % (AUTO) 0.1 % (0-6); HEMATOCRIT 25.8 % (42.0-52.0); HEMOGLOBIN 8.9 g/dl (14.0-17.9); LYMPHOCYTES # (AUTO) 1.4 X10'3 (1.1-4.8); LYMPHOCYTES % (AUTO) 7.9 % (21-51); MEAN CORPUSCULAR HEMOGLOBIN 34.4 PG (27.0-31.0); MEAN CORPUSCULAR HGB CONC 34.5 g/dL (33.0-36.5); MEAN CORPUSCULAR VOLUME 99.7 FL (78-98); MEAN PLATELET VOLUME 9.4 FL (7.4-10.4); MONOCYTES # (AUTO) 1.5 X10'3 (0-0.9); MONOCYTES % (AUTO) 8.3 % (2-12); NEUTROPHILS # (AUTO) 14.6 X10'3 (1.8-7.7); NEUTROPHILS % (AUTO) 83.5 % (42-75); PLATELET COUNT 237 X10'3 (140-440); RED BLOOD COUNT 2.58 X10'6 (4.70-6.10); RED CELL DISTRIBUTION WIDTH 14.2 % (11.5-14.5); WHITE BLOOD COUNT 17.5 X10'3 (4.5-11.0)
[2020-02-22 08:20] LABS: ANION GAP 10 (8-16); BLOOD UREA NITROGEN 24 MG/DL (7-18); BUN/CREATININE RATIO 26.7 (5.4-32.0); CHLORIDE 111 MMOL/L (99-107); GLUCOSE 94 MG/DL (70-104); POTASSIUM 3.1 MMOL/L (3.5-5.1); SODIUM 145 MMOL/L (135-145); TOTAL CARBON DIOXIDE 24.2 MMOL/L (24-32); eGFR 81 ML/MIN
[2020-02-22] MEDS: lactobacillus rhamnosus 10,000 MMU CELLS/CAPSULE PO SCH ×2 (08:41→20:56)
[2020-02-22] MEDS: aspirin 81mg tablet.DR PO SCH (08:41)
[2020-02-22] MEDS: nicotine 14mg patch - 24hr TD SCH (08:41)
[2020-02-22] MEDS: pantoprazole 40 MG vial IV SCH (08:41)
[2020-02-22] MEDS: enoxaparin 40mg/0.4ml syringe SUBCUT SCH (08:46)
[2020-02-22] MEDS: proCHLORperazine 10 MG/2 ml inj IV PRN (08:50)
[2020-02-22] MEDS: diatr meglu/diatrizoate 30ml oral sol.-(3 dose) bottle PO SCH ×3 (10:25→16:42)
[2020-02-22 12:00] VITALS: BP 86/48
[2020-02-22 12:15] VITALS: BP 129/62
--- NOTE | 2020-02-22 12:48 | NUR ---
Reassessment: Patient's diet has been digressed to clear liquids however continues with 0-25% PO intake with refusals. Per RN and MD notes pt refusing an NG tube however receiving Zofran and Compazine for reported N/V. Despite active diet order pt currently NPO for procedure. LBM 02/17, ileus vs constipation per MD notes. Pt started on routine Relistor 02/19. Limited interventions at this time given current diet order. Will continue to follow closely. Recommendations: 1) Advance to regular diet as medically indicated given poor PO intake 2) Monitor for ONS acceptance, patient suboptimal PO Intake; declines ONS/food preferences/alternative menu items 3) Routine bowel care 4) Weekly scaled wts Addendum: 02/22/20 at [address] Amended: Links added.
[2020-02-22] MEDS: normal saline 1000ml 1,000 ML IV SCH (15:07)
[2020-02-22] MEDS ORDERED: iohexol 300mg/ml 100ml inj. ONE (16:49)
[2020-02-22] MEDS ORDERED: potassium Cl 20 mEq SR tablet PO PRN ×2 (17:00)
[2020-02-22] MEDS ORDERED: potassium CL 10mEq/100ml bag 100 ML IV PRN (17:00)
[2020-02-22] MEDS ORDERED: iohexol 300 MG/1 ML 50ml polymer ONE (17:04)
[2020-02-22] MEDS: potassium CL 10mEq/100ml bag 100 ML IV PRN ×4 (17:51→22:10)
--- NOTE | 2020-02-22 18:49 | NUR ---
Problems reprioritized. Patient report given, questions answered & plan of care reviewed with Vannessa RN.
[2020-02-22 19:30] VITALS: BP 123/62
[2020-02-22] MEDS: methylnaltrexone br 12mg/0.6ml inj***SubQ only SQ SCH (20:57)
[2020-02-23] VITALS: BP 132/65
[2020-02-23] MEDS: normal saline 1000ml 1,000 ML IV SCH (05:39)
[2020-02-23 07:22] VITALS: BP 142/63
[2020-02-23] MEDS: K and/or MAG REPLACEMENT MC SCH ×2 (08:00→20:00)
[2020-02-23] MEDS: pantoprazole 40 MG vial IV SCH (08:12)
[2020-02-23] MEDS: aspirin 81mg tablet.DR PO SCH (08:12)
[2020-02-23] MEDS: lactobacillus rhamnosus 10,000 MMU CELLS/CAPSULE PO SCH ×2 (08:12→20:28)
[2020-02-23] MEDS: nicotine 14mg patch - 24hr TD SCH (08:13)
[2020-02-23] MEDS: enoxaparin 40mg/0.4ml syringe SUBCUT SCH (08:13)
[2020-02-23 09:25] LABS: BASOPHILS % (AUTO) 0.1 % (0-1); EOSINOPHILS # (AUTO) 0.2 X10'3 (0-0.9); EOSINOPHILS % (AUTO) 0.9 % (0-6); HEMATOCRIT 25.6 % (42.0-52.0); HEMOGLOBIN 8.5 g/dl (14.0-17.9); LYMPHOCYTES # (AUTO) 1.2 X10'3 (1.1-4.8); LYMPHOCYTES % (AUTO) 6.7 % (21-51); MEAN CORPUSCULAR HEMOGLOBIN 32.8 PG (27.0-31.0); MEAN CORPUSCULAR HGB CONC 33.1 g/dL (33.0-36.5); MEAN CORPUSCULAR VOLUME 99.1 FL (78-98); MEAN PLATELET VOLUME 9.6 FL (7.4-10.4); MONOCYTES # (AUTO) 1.3 X10'3 (0-0.9); MONOCYTES % (AUTO) 6.9 % (2-12); NEUTROPHILS # (AUTO) 15.5 X10'3 (1.8-7.7); NEUTROPHILS % (AUTO) 85.4 % (42-75); PLATELET COUNT 261 X10'3 (140-440); RED BLOOD COUNT 2.58 X10'6 (4.70-6.10); RED CELL DISTRIBUTION WIDTH 14.2 % (11.5-14.5); WHITE BLOOD COUNT 18.2 X10'3 (4.5-11.0)
[2020-02-23 11:30] VITALS: BP 121/63
[2020-02-23] MEDS: furosemide 20 MG/2 ML vial IV SCH (11:50)
[2020-02-23 18:00] VITALS: BP 153/70
[2020-02-23] MEDS ORDERED: POTASSIUM BICARB 20meq eff tab 20 MEQ TABLET.EFF PO PRN ×2 (20:36→20:37)
[2020-02-23] MEDS: proCHLORperazine 10 MG/2 ml inj IV PRN (21:58)
--- NOTE | 2020-02-23 21:59 | NUR ---
Pt req compazine for nausea to help with K+ replacement.
[2020-02-23 23:26] VITALS: BP 154/63
--- NOTE | 2020-02-24 02:14 | NUR ---
pt refusing PO potassium replacement, requests to have it done IV. after initializing IV replacement, pt complained of burning in IV, slowed rate down to patient comfort. will continue to monitor
--- NOTE | 2020-02-24 03:07 | NUR ---
pt refusing at this time IV potassium replacement, says his arm puckett to bad despite rate being slowed and refuses for it to slowed again saying its getting in his way of sleeping. educated pt on importance of potassium in regard to his care. will continue to monitor
--- NOTE | 2020-02-24 06:15 | NUR ---
Patient in room JOSE 345. I have received report from RASHEEDA Menchaca and had the opportunity to ask questions and assume patient care.
[2020-02-24 07:13] VITALS: BP 145/60
[2020-02-24 07:39] LABS: BASOPHILS % (AUTO) 0.3 % (0-1); EOSINOPHILS # (AUTO) 0.2 X10'3 (0-0.9); EOSINOPHILS % (AUTO) 1.1 % (0-6); HEMATOCRIT 24.8 % (42.0-52.0); HEMOGLOBIN 8.4 g/dl (14.0-17.9); LYMPHOCYTES # (AUTO) 1.5 X10'3 (1.1-4.8); LYMPHOCYTES % (AUTO) 10.5 % (21-51); MEAN CORPUSCULAR HEMOGLOBIN 33.2 PG (27.0-31.0); MEAN CORPUSCULAR HGB CONC 33.7 g/dL (33.0-36.5); MEAN CORPUSCULAR VOLUME 98.5 FL (78-98); MEAN PLATELET VOLUME 9.7 FL (7.4-10.4); MONOCYTES # (AUTO) 1.2 X10'3 (0-0.9); MONOCYTES % (AUTO) 8.2 % (2-12); NEUTROPHILS # (AUTO) 11.5 X10'3 (1.8-7.7); NEUTROPHILS % (AUTO) 79.9 % (42-75); PLATELET COUNT 274 X10'3 (140-440); RED BLOOD COUNT 2.52 X10'6 (4.70-6.10); RED CELL DISTRIBUTION WIDTH 14.3 % (11.5-14.5); WHITE BLOOD COUNT 14.4 X10'3 (4.5-11.0)
[2020-02-24] MEDS: K and/or MAG REPLACEMENT MC SCH ×2 (08:00→20:00)
--- NOTE | 2020-02-24 08:24 | NUR ---
Patient has a potassium of 3.1 and refuses to have any replacement. Patient was educated about potassium and what its does. Patient stated he doesn't want it. Will inform MD and continue to monitor.
[2020-02-24] MEDS: aspirin 81mg tablet.DR PO SCH (08:31)
[2020-02-24] MEDS: furosemide 20 MG/2 ML vial IV SCH (08:31)
[2020-02-24] MEDS: lactobacillus rhamnosus 10,000 MMU CELLS/CAPSULE PO SCH ×2 (08:31→20:00)
[2020-02-24] MEDS: methylnaltrexone br 12mg/0.6ml inj***SubQ only SQ SCH (08:32)
[2020-02-24] MEDS: pantoprazole 40 MG vial IV SCH (08:32)
[2020-02-24] MEDS: enoxaparin 40mg/0.4ml syringe SUBCUT SCH (08:32)
[2020-02-24] MEDS: nicotine 14mg patch - 24hr TD SCH (08:33)
[2020-02-24 11:00] VITALS: BP 100/51
--- NOTE | 2020-02-24 15:30 | NUR ---
F/u (02/23): Pt had large BMx2 s/p initial Ileus now improving. Diet advanced to full liquids past 3 days from clears 02/19. PO 50% full liquids breakfast w/ 0% lunch today per RN. 0-25% meals past 9 days not meeting needs; prior Ileus likely to significantly impact PO though pt had refused NG. Pt not in room during RD visit. Would benefit from Ensure Enlive TIDWM for additional protein/kcal needs; MD notified. RD d/w RN regarding diet advancement given BM's as medically indicated. Will continue to monitor for additional protein needs post-op. Recommendations: 1) Advance to regular diet as medically indicated given poor PO intake 2) Ensure Enlive TIDWM; declines ONS/food preferences/alternative menu items 3) Routine bowel care 4) Weekly scaled wts Addendum: 02/24/20 at [address] Amended: Links added.
--- NOTE | 2020-02-24 16:40 | NUR ---
Patient ireland cath d/c'd per Dr. Ortega's order. Patient tolerated well.
--- NOTE | 2020-02-24 18:11 | NUR ---
Problems reprioritized. Patient report given, questions answered & plan of care reviewed with RASHEEDA Menchaca.
[2020-02-24 19:11] VITALS: BP 136/61
--- NOTE | 2020-02-24 22:39 | NUR ---
bladder scan 163mL. denies urge to void at this time. will continue to monitor
[2020-02-25] VITALS: BP 145/61
--- NOTE | 2020-02-25 06:18 | NUR ---
Patient in room JOSE 345. I have received report from RASHEEDA Mecnhaca and had the opportunity to ask questions and assume patient care.
[2020-02-25 07:00] VITALS: BP 128/53
[2020-02-25] MEDS: K and/or MAG REPLACEMENT MC SCH ×2 (07:25→20:00)
[2020-02-25] MEDS: furosemide 20 MG/2 ML vial IV SCH (07:36)
[2020-02-25] MEDS: lactobacillus rhamnosus 10,000 MMU CELLS/CAPSULE PO SCH ×2 (07:37→19:58)
[2020-02-25] MEDS: enoxaparin 40mg/0.4ml syringe SUBCUT SCH (07:37)
[2020-02-25] MEDS: pantoprazole 40 MG vial IV SCH (07:37)
[2020-02-25] MEDS: aspirin 81mg tablet.DR PO SCH (07:37)
[2020-02-25] MEDS: nicotine 14mg patch - 24hr TD SCH (07:40)
--- NOTE | 2020-02-25 10:47 | NUR ---
Patient was just up and walking and then sat up in chair. Manual pressure was 75/39 and HR 112. MD notified with following: PAGER ID: [phone] MESSAGE: RASHEEDA Bales [id number] Patient up to chair, manual pressure 75/39 HR 112. Patient states feeling dizzy. Will recheck in 15 minutes. Thank you Will continue to monitor patient.
[2020-02-25 11:00] VITALS: BP 75/39
[2020-02-25] MEDS ORDERED: normal saline 500ml IV soln 1,000 ML IV ONE (11:10)
[2020-02-25 12:30] VITALS: BP 110/51
--- NOTE | 2020-02-25 18:15 | NUR ---
Patient in room JOSE 345. I have received report from Amairani VANESSA and had the opportunity to ask questions and assume patient care.
--- NOTE | 2020-02-25 18:18 | NUR ---
Problems reprioritized. Patient report given, questions answered & plan of care reviewed with RASHEEDA Herrera.
--- NOTE | 2020-02-25 19:00 | NUR ---
Patient had low potassuim 3.1 and refused replacements
[2020-02-25 20:00] VITALS: BP_SYST 108; BP_SYST 111; BP_SYST 94; BP_SYST 96; BP_DIAS 46; BP_DIAS 47; BP_DIAS 55; BP_DIAS 57
[2020-02-26] VITALS: BP 135/58
[2020-02-26 05:26] LABS: BASOPHILS % (AUTO) 0.3 % (0-1); EOSINOPHILS # (AUTO) 0.3 X10'3 (0-0.9); EOSINOPHILS % (AUTO) 2.1 % (0-6); LYMPHOCYTES # (AUTO) 1.8 X10'3 (1.1-4.8); MEAN CORPUSCULAR HEMOGLOBIN 33.4 PG (27.0-31.0); MEAN CORPUSCULAR HGB CONC 33.5 g/dL (33.0-36.5); MEAN CORPUSCULAR VOLUME 99.7 FL (78-98); MEAN PLATELET VOLUME 9.8 FL (7.4-10.4); MONOCYTES # (AUTO) 1.2 X10'3 (0-0.9); MONOCYTES % (AUTO) 9.5 % (2-12); NEUTROPHILS # (AUTO) 8.9 X10'3 (1.8-7.7); NEUTROPHILS % (AUTO) 73.1 % (42-75); PLATELET COUNT 275 X10'3 (140-440); RED BLOOD COUNT 2.41 X10'6 (4.70-6.10); RED CELL DISTRIBUTION WIDTH 14.4 % (11.5-14.5); WHITE BLOOD COUNT 12.2 X10'3 (4.5-11.0)
[2020-02-26 05:31] LABS: ALANINE AMINOTRANSFERASE 32 U/L (12-78); ALBUMIN 2.1 G/DL (3.4-5.0); ALBUMIN/GLOBULIN RATIO 0.8 (1.1-1.5); ALKALINE PHOSPHATASE 50 IU/L (46-116); ANION GAP 11 (8-16); ASPARTATE AMINO TRANSFERASE 28 U/L (10-37); BILIRUBIN,TOTAL 1.3 MG/DL (0.1-1.0); BLOOD UREA NITROGEN 28 MG/DL (7-18); BUN/CREATININE RATIO 28.6 (5.4-32.0); CALCIUM 7.5 MG/DL (8.5-10.1); CHLORIDE 108 MMOL/L (99-107); CREATININE 0.98 MG/DL (0.60-1.10); GLUCOSE 81 MG/DL (70-104); SODIUM 144 MMOL/L (135-145); TOTAL CARBON DIOXIDE 25.3 MMOL/L (24-32); TOTAL PROTEIN 4.8 G/DL (6.4-8.2); eGFR 73 ML/MIN
[2020-02-26 05:52] LABS: POTASSIUM 2.9 MMOL/L (3.5-5.1)
[2020-02-26] MEDS ORDERED: potassium Cl 20 mEq SR tablet PO PRN (06:25)
[2020-02-26] MEDS ORDERED: potassium CL 10mEq/100ml bag 100 ML IV PRN ×2 (06:25)
--- NOTE | 2020-02-26 06:42 | NUR ---
Patient in room JOSE 345. I have received report from RASHEEDA Herrera and had the opportunity to ask questions and assume patient care.
--- NOTE | 2020-02-26 06:42 | NUR ---
Problems reprioritized. Patient report given, questions answered & plan of care reviewed with Catrina VANESSA.
[2020-02-26 07:00] VITALS: BP 123/53
[2020-02-26] MEDS: nicotine 14mg patch - 24hr TD SCH (07:52)
[2020-02-26] MEDS: pantoprazole 40mg Tablet.DR PO SCH (07:52)
[2020-02-26] MEDS: lactobacillus rhamnosus 10,000 MMU CELLS/CAPSULE PO SCH ×2 (07:53→20:07)
[2020-02-26] MEDS: aspirin 81mg tablet.DR PO SCH (07:53)
[2020-02-26] MEDS: enoxaparin 40mg/0.4ml syringe SUBCUT SCH (07:59)
[2020-02-26] MEDS ORDERED: K and/or MAG REPLACEMENT MC SCH (08:00)
[2020-02-26] MEDS: methylnaltrexone br 12mg/0.6ml inj***SubQ only SQ SCH (08:01)
[2020-02-26] MEDS: K and/or MAG REPLACEMENT MC SCH ×2 (08:02→19:42)
--- NOTE | 2020-02-26 08:59 | NUR ---
Prevena wound vac DC'd per written orders. Pt tolerated well. Incision covered with island dressing.
[2020-02-26 10:00] VITALS: BP_SYST 105; BP_SYST 127; BP_SYST 94; BP_DIAS 28; BP_DIAS 49; BP_DIAS 57
[2020-02-26 11:00] VITALS: BP 110/77
[2020-02-26] MEDS: potassium Cl 20 mEq SR tablet PO PRN ×2 (12:29→16:34)
[2020-02-26] MEDS ORDERED: normal saline 1000ml 1,000 ML IV ONE (13:05)
[2020-02-26 14:15] VITALS: BP 128/60
--- NOTE | 2020-02-26 14:57 | NUR ---
NS 500ml bolus administered per MD orders. BP 128/60.
--- NOTE | 2020-02-26 18:35 | NUR ---
Problems reprioritized. Patient report given, questions answered & plan of care reviewed with RASHEEDA Roe. Pt resting comfortably on recliner. K+ 2.6 replaced this shift.
[2020-02-26 20:00] VITALS: BP 141/59
[2020-02-27] VITALS: BP_SYST 128; BP_SYST 131; BP_SYST 90; BP_DIAS 50; BP_DIAS 54; BP_DIAS 58
[2020-02-27] MEDS ORDERED: normal saline 1000ml 1,000 ML IV ONE (01:05)
--- NOTE | 2020-02-27 01:08 | NUR ---
Patient positive for orthostatics tonight. notified-to started fluids NS @100ml for a total of 1L. Will continue with care.
--- NOTE | 2020-02-27 06:51 | NUR ---
Patient in room JOSE 345. I have received report from RASHEEDA HORTON and had the opportunity to ask questions and assume patient care.
[2020-02-27] MEDS: pantoprazole 40mg Tablet.DR PO SCH (07:35)
[2020-02-27] MEDS: aspirin 81mg tablet.DR PO SCH (07:35)
[2020-02-27] MEDS: nicotine 14mg patch - 24hr TD SCH (07:35)
[2020-02-27] MEDS: lactobacillus rhamnosus 10,000 MMU CELLS/CAPSULE PO SCH ×2 (07:35→21:31)
[2020-02-27] MEDS: enoxaparin 40mg/0.4ml syringe SUBCUT SCH (07:41)
[2020-02-27] MEDS: K and/or MAG REPLACEMENT MC SCH ×2 (07:53→18:45)
[2020-02-27 08:21] VITALS: BP_SYST 101; BP_DIAS 40; BP_DIAS 46; BP_DIAS 47
[2020-02-27 08:22] VITALS: BP 101/47
--- NOTE | 2020-02-27 10:18 | NUR ---
PUMP TECHNICIAN IN WITH PATIENT.
[2020-02-27 11:59] VITALS: BP 137/58
--- NOTE | 2020-02-27 17:59 | NUR ---
Educated patient benefits of having BARBARA hose on but patient refused to have BARBARA Hose on. Attempted x3 but patient continues to refuse.
[2020-02-27 18:00] VITALS: BP 129/53
--- NOTE | 2020-02-27 18:33 | NUR ---
Patient in room JOSE 345. I have received report from RASHEEDA Mcintosh and had the opportunity to ask questions and assume patient care.
--- NOTE | 2020-02-27 18:42 | NUR ---
Problems reprioritized. Patient report given, questions answered & plan of care reviewed with RASHEEDA Taylor.
[2020-02-28 00:01] VITALS: BP_SYST 123; BP_SYST 135; BP_SYST 143; BP_DIAS 54; BP_DIAS 56; BP_DIAS 66
[2020-02-28 00:40] VITALS: BP_SYST 123; BP_SYST 135; BP_SYST 143; BP_DIAS 54; BP_DIAS 56; BP_DIAS 66
--- NOTE | 2020-02-28 06:10 | NUR ---
Patient in room JOSE 345. I have received report from RASHEEDA Taylor and had the opportunity to ask questions and assume patient care.
[2020-02-28 06:30] VITALS: BP_SYST 125; BP_SYST 77; BP_SYST 86; BP_DIAS 36; BP_DIAS 50; BP_DIAS 55
--- NOTE | 2020-02-28 06:42 | NUR ---
Problems reprioritized. Patient report given, questions answered & plan of care reviewed with RASHEEDA Burroughs.
[2020-02-28] MEDS: pantoprazole 40mg Tablet.DR PO SCH (07:30)
[2020-02-28] MEDS: K and/or MAG REPLACEMENT MC SCH (07:32)
[2020-02-28] MEDS: aspirin 81mg tablet.DR PO SCH (08:00)
[2020-02-28] MEDS: methylnaltrexone br 12mg/0.6ml inj***SubQ only SQ SCH (08:00)
[2020-02-28] MEDS: lactobacillus rhamnosus 10,000 MMU CELLS/CAPSULE PO SCH (08:00)
[2020-02-28] MEDS: enoxaparin 40mg/0.4ml syringe SUBCUT SCH (08:00)
[2020-02-28] MEDS: nicotine 14mg patch - 24hr TD SCH (08:58)
--- NOTE | 2020-02-28 11:45 | NUR ---
Report called to Jerrod Hernandez RN. No IV. All belongings sent w/pt. Pt transported via [employer].
--- NOTE | 2020-02-28 12:51 | NUR ---
Called RASHEEDA Hernandez @ [facility] who is taking pt when he arrives to inform received order from Dr Ortega for staple removal & asked if she wanted a fax of the TOV to which she stated yes, therefore faxed ([phone]) TOV to RASHEEDA Hernandez @ [facility] RE:remove tiffanie from all surgical incisions approx 3wks postop ie 03/07-03/13/2020.
--- NOTE | 2020-02-28 12:51 | NUR ---
Spoke to Dr Ortega regarding patient has been discharged to [facility] wanted to make sure he had no further orders patient is only on 81 mg Aspirin daily, and we also wanted to see when he wanted tiffanie removed. per Dr Ortega DC tiffanie 3 weeks from surgery date. Advised primary RN Heike of Dr Ortega information.
== END 2020-02-28 11:49 | DRG 270 ==
LOC: ER 11:29 → ED HOLD 17:05 → SUR 3N 21:25 → CICU 2S 02-13 22:10 → MED 3N 02-14 20:30 → ICU 2S 02-18 19:13 → SUR 3N 02-19 17:48
PROVIDERS: ADMIT Internal Medicine; ATTEND Internal Medicine
PROC: B4201ZZ Computerized Tomography (CT Scan) of Abdominal Aorta using Low Osmolar Contrast (ICD-10-PCS; 2020-02-12)
PROC: B42H1ZZ Computerized Tomography (CT Scan) of Bilateral Lower Extremity Arteries using Low Osmolar Contrast (ICD-10-PCS; 2020-02-12)
PROC: 041S0JS Bypass Left Posterior Tibial Artery to Lower Extremity Vein with Synthetic Substitute, Open Approach (ICD-10-PCS; 2020-02-13)
PROC: 041K0ZL Bypass Right Femoral Artery to Popliteal Artery, Open Approach (ICD-10-PCS; 2020-02-13)
PROC: 04100JJ Bypass Abdominal Aorta to Left Femoral Artery with Synthetic Substitute, Open Approach (ICD-10-PCS; principal; 2020-02-13 17:26)
PROC: 04CK3ZZ Extirpation of Matter from Right Femoral Artery, Percutaneous Approach (ICD-10-PCS; 2020-02-18)
PROC: BW211ZZ Computerized Tomography (CT Scan) of Abdomen and Pelvis using Low Osmolar Contrast (ICD-10-PCS; 2020-02-22)
DX: I73.9 Peripheral vascular disease, unspecified (principal); E43 Unspecified severe protein-calorie malnutrition; D62 Acute posthemorrhagic anemia; K56.7 Ileus, unspecified; D72.829 Elevated white blood cell count, unspecified; E87.6 Hypokalemia; I70.0 Atherosclerosis of aorta; I95.1 Orthostatic hypotension; Z68.25 Body mass index [BMI] 25.0-25.9, adult; Z79.899 Other long term (current) drug therapy; Z87.891 Personal history of nicotine dependence
CPT/HCPCS: 36415; 71045; 71046; 73590; 74018; 74177; 75635; 76000; 76937; 80048; 80053; 80061; 82948; 83605; 83735; 83880; 84100; 84132; 84145; 85025; 85610; 85730; 86885; 86900; 86901; 86920; 87040; 87081; 88300; 93005; 93306; 93922; 93925; 93970; 93971; 94668; 97110; 97112; 97116; 97161; 97164; 97530; 99285; A4215; A4618; A6258; A6449; A6455; A7000; C1758; C1768; C9113; C9399; G0378; J0690; J0694; J0696; J0780; J1100; J1170; J1644; J1650; J1940; J2001; J2212; J2250; J2405; J2704; J2710; J3010; J3475; J3480; J3490; J7030; J7040; J7120; P9045; Q9963; Q9967